=== PATIENT | female | born 1955 | race Caucasian/White ===

== ENCOUNTER 2020-09-10 12:53 | Emergency (ER) | payer BC, OTHER ==
[2020-09-10 13:03] VITALS: O2SAT 98
--- NOTE | 2020-09-10 13:19 | ERPHSYRPT ---
- History of Present Illness Time Seen by Provider: 09/10/20 13:16 Source: patient Exam Limitations: no limitations Patient Subjective Stated Complaint: Pt states "I fell on and my hand has been swollen ever since." Triage Nursing Assessment: PT presented alert and oriented X 3, skin pwd PT ambulates with an upright steady gait, able to speak in clear full sentences. Pt left hand swollen, red, CSM X 4. Physician History: C/O "I fell on and my hand has been swollen ever since." Pt left hand swollen, red, Occurred: days ago (two) Method of Injury: fell Quality: constant Severity of Pain-Max: moderate Severity of Pain-Current: moderate Extremities Pain Location: forearm: left, wrist: left Modifying Factors: Improves With: cold therapy Associated Symptoms: none Allergies/Adverse Reactions: amoxicillin trihydrate [From Augmentin] Allergy (Verified 03/18/16 17:19) potassium clavulanate [From Augmentin] Allergy (Verified 03/18/16 17:19) Home Medications: Diltiazem HCl [Cardizem] 120 mg PO DAILY 01/09/12 [History] Levothyroxine Sodium 50 Mcg [Synthroid 50 Mcg] 50 mcg PO DAILY 01/09/12 [History] Omeprazole [Prilosec] 20 mg PO DAILY 01/09/12 [History] Metoprolol Succinate [Toprol Xl] 25 mg PO DAILY 09/10/20 [History] Hx Tetanus, Diphtheria Vaccination/Date Given: Yes Hx Influenza Vaccination/Date Given: Yes Hx Pneumococcal Vaccination/Date Given: No Immunizations Up to Date: Yes Travel Risk - International Travel Have you traveled outside of the country in past 3 weeks: No - Coronavirus Screening Are you exhibiting any of the following symptoms?: No Close contact with a COVID-19 positive Pt in past 14-21 Days: No - Review of Systems Constitutional: No Symptoms Eyes: No Symptoms Ears, Nose, & Throat: No Symptoms Respiratory: No Symptoms Cardiac: No Symptoms Abdominal/Gastrointestinal: No Symptoms Genitourinary Symptoms: No Symptoms Musculoskeletal: Joint Pain (left forearm and wrist), Joint Swelling - Past Medical History Pertinent Past Medical History: Yes Neurological History: No Pertinent History ENT History: No Pertinent History Cardiac History: Hypertension Respiratory History: No Pertinent History Endocrine Medical History: Hypothyroidism Musculoskeletal History: No Pertinent History GI Medical History: GERD, Other History: No Pertinent History Psycho-Social History: No Pertinent History Female Reproductive Disorders: No Pertinent History Other Medical History: hx positive h-pylori - Past Surgical History Past Surgical History: Yes Neuro Surgical History: No Pertinent History Cardiac: Cardiac Catheterization Respiratory: No Pertinent History Gastrointestinal: Cholecystectomy Genitourinary: No Pertinent History Musculoskeletal: No Pertinent History Female Surgical History: Hysterectomy, Other Other Surgical History: breast biopsy, colonoscopy, EGD. shawn - Social History Smoking Status: Never smoker Exposure to second hand smoke: No Drug Use: none Patient Lives Alone: No - Female History Hx Now: No - Nursing Vital Signs Nursing Vital Signs: Initial Vital Signs Temperature 98.3 F 09/10/20 12:57 Pulse Rate 74 09/10/20 12:57 Respiratory Rate 20 09/10/20 12:57 Blood Pressure 195/82 09/10/20 12:57 O2 Sat by Pulse Oximetry 98 09/10/20 12:57 Pain Scale Pain Intensity 10 - Physical Exam General Appearance: no apparent distress Eyes, Ears, Nose, Throat Exam: normal ENT inspection Neck Exam: normal inspection Cardiovascular/Respiratory Exam: chest non-tender Abdominal Exam: non-tender Shoulder Exam: normal inspection Elbow/Forearm Exam: limited ROM, pain, soft tissue tenderness Wrist Exam: bone tenderness, deformity, limited ROM, soft tissue tenderness Hand Exam: soft tissue tenderness Neuro/Tendon Exam: normal sensation, normal motor functions Mental Status Exam: alert, oriented x 3 Skin Exam: normal color SpO2 Interpretation: normal SpO2: 98 O2 Delivery: Room Air - Course Nursing assessment & vital signs reviewed: Yes - Radiology Exams Forearm X-ray Interpretation: Reviewed by me, Non-displaced Fracture (colles fracture) Wrist X-ray Interpretation: Reviewed by me Ordered Tests: Active Orders 24 hr Category Date Time Status FOREARM Stat Exams 09/10/20 13:13 Taken WRIST (MIN 3 VIEWS) Stat Exams 09/10/20 13:13 Taken - Progress Progress: improved, pain not gone completely Counseled pt/family regarding: diagnosis, need for follow-up (at Ortho clinic on saturday) - Departure Departure Disposition: Home Clinical Impression: Colles' fracture of left radius, initial encounter for closed fracture Condition: Stable Critical Care Time: No [phone] Instructions: Colles' Fracture (DC) Additional Instructions: Discharge/Care Plan ANTOINE PHIPPS was seen on 09/10/20 in the Emergency Room. The patient was counseled regarding Diagnosis,Lab results, Imaging studies, need for follow up and when to return to the Emergency Room. Prescriptions given: Discharge Note I have spoken with the patient and/or caregivers. I have explained the patient's condition, diagnosis and treatment plan based on the information available to me at this time. I have answered the patient's and/or caregiver's questions and addressed any concerns. The patient and/or caregivers have as good understanding of the patient's diagnosis, condition and treatment plan as can be expected at this point. The vital signs have been stable. The patient's condition is stable and appropriate for discharge from the emergency department. The patient will pursue further outpatient evaluation with the primary care physician or other designated or consulting physician as outlined in the discharge instructions. The patient and/or caregivers are agreeable to this plan of care and follow-up instructions have been explained in detail. The patient and/or caregivers have received these instruction. The patient/and or caregivers are aware that any significant change in condition or worsening of symptoms should prompt an immediate return to this or the closest emergency department or call 911. ANTOINE PHIPPS was seen on 09/10/20 n the Emergency Room. At that time you were treated for an emergent condition, during your visit Laboratory, Radiology and/or other procedures may have been ordered. It is very important that you follow-up with your Primary Care Physician [facility] within the next 24-48 hours to review your Emergency Room visit and the final results of testing that was ordered. Some test results such as Urine Cultures, Blood Cultures, and other cultures if ordered will not be finalized for 24-48 hours. If you do not have a Primary Care Provider please call the medical records department at [phone] to obtain a copy of your results or you may sign into our patient portal to obtain these results by visiting us @ [email or web address] and completing the following steps: 1. Click on the Patient Portal link 2. Click the Patient Self Enrollment Link to complete the enrollment form and entering your 3. Once the enrollment form is completed you will receive an email with a temporary ID and password at the email address you provided. 4. Next choose a user name and password. Your user name must be at least 4 characters long and your password must be at least 4 characters long. 5. Choose a security question from the list and provide your answer to the question. If you already have signed into the Health Portal you may access your Health Care Information 01/04 by the following steps: 1. Login to our website @ [email or web address] 2. Enter your original user name and password. FAQS The [facility] Health Portal is an online tool that contains your Lab Results, Radiology Reports, Visit History, Discharge Instructions and Health Summary Lab and Radiology Results will not be available for 72 hours on the portal. The Portal is a secure site, passwords are encryted and URLs are re-written so they cannot be copied and pasted. You and authorized family members are the only ones who can access your Portal. Also there is a timeout feature that protects your information if you leave the Portal page open. If you have technical difficulty please use the Contact Us link on the page this will allow you to submit any questions you have regarding the Portal or you may contact the Medical Record Department at [phone] ext [phone]. Prescriptions: Naproxen 375 mg [Naprosyn 375 mg] 375 mg PO Q8H #30 tablet
[2020-09-10 14:03] VITALS: BP 168/82; PULSE 70
--- NOTE | 2020-09-10 17:06 | XRAY ---
Indication: Pain, bruising, and swelling following fall 2 days ago. Comparison: None 2 view left forearm demonstrates nondisplaced comminuted fracture distal radius with intra-articular extension and soft tissue swelling. Also nondisplaced ulnar styloid fracture. Incidental mild degenerative changes 1st metacarpal multangular articulation. Remaining forearm unremarkable.
--- NOTE | 2020-09-10 17:06 | XRAY ---
Indication: Pain, bruising, and swelling following fall 2 days ago. Comparison: None 3 view left wrist demonstrates nondisplaced comminuted fracture distal radius with intra-articular extension and soft tissue swelling. Also nondisplaced ulnar styloid fracture. Incidental mild degenerative changes 1st metacarpal multangular articulation. Remaining wrist unremarkable.
== END 2020-09-10 14:15 | disposition home or self-care (01) ==
LOC: ED 12:53
DX: S52.532A Colles' fracture of left radius, initial encounter for closed fracture (principal); W01.0XXA Fall on same level from slipping, tripping and stumbling without subsequent striking against object, initial encounter
CPT/HCPCS: 29126; 73090; 73110; 99283